=== PATIENT | female | born 1995 | race Two or more races ===

== ENCOUNTER 2024-01-05 10:36 | Outpatient (CLI) | payer OTHER | END 2024-01-05 10:41 | disposition home or self-care (01) | LOC: PRENATAL 10:36 | PROVIDERS: ATTEND Obstetrics & Gynecology Maternal & Fetal Medicine | DX: O36.80X0 Pregnancy with inconclusive fetal viability, not applicable or unspecified (principal); Z36.82 Encounter for antenatal screening for nuchal translucency; Z14.8 Genetic carrier of other disease ==

== ENCOUNTER 2024-02-10 12:40 | Outpatient (CLI) | payer OTHER | END 2024-02-10 12:41 | disposition home or self-care (01) | LOC: PRENATAL 12:40 | PROVIDERS: ATTEND Obstetrics & Gynecology Maternal & Fetal Medicine | DX: O44.00 Complete placenta previa NOS or without hemorrhage, unspecified trimester (principal); Z3A.19 19 weeks gestation of pregnancy ==

== ENCOUNTER 2024-02-29 21:23 | Inpatient (IN) | payer OTHER ==
[~2024-02-29] VITALS: Ht 160 cm; Wt 55.8 kg
[2024-02-29 20:49] VITALS: BP 111/72
[2024-02-29] MEDS ORDERED: RINGERS SOLUTION,LACTATED 1,000 ML IV SCH (21:45)
[2024-02-29] MEDS ORDERED: ACETAMINOPHEN 500 MG GEL..CAP PO PRN (21:45)
[2024-02-29 21:50] LABS: PH,URINE 6.5 (5.0-8.0); URINE APPEARANCE Cloudy; URINE BILIRRUBIN Negative (NEGATIVE); URINE BLOOD Negative; URINE COLOR Yellow; URINE GLUCOSE Negative (NEGATIVE); URINE KETONE Negative (NEGATIVE); URINE LEUKOCYTE Negative; URINE NITRATE Negative; URINE PROTEIN Negative (NEGATIVE); URINE UROBILINOGEN 0.2 E.U./dl
[2024-02-29 21:52] LABS: HEMATOCRIT 32.1 % (36.0-45.00); HEMOGLOBIN 11.1 g/dL (12.0-15.00); MEAN CELL VOLUME 89.2 fL (80.00-100.00); MEAN CORPUSCULAR HEMOGLOBIN 30.8 pg (27.00-32.0); MEAN CORPUSCULAR HGB CONC 34.5 g/dl (32.0-36.0); PLATELET COUNT 275 K/uL (150-450); RED BLOOD COUNT 3.59 M/uL (4.00-6.00); RED CELL DISTRIBUTION WIDTH 13.1 % (11.5-14.5)
[2024-02-29 21:53] LABS: URINE BACTERIA 1287.3 uL (0.0-1933); URINE EPITHELIAL CELLS 11.2 uL (0.0-38.8); URINE RBC 9.8 uL (0.0-20.8); URINE WBC 13.6 uL (0.0-23.2)
[2024-02-29 23:15] VITALS: BP 98/62
[2024-03-01 03:00] VITALS: BP 102/62
[2024-03-01 06:02] VITALS: BP 94/60; O2SAT 98
[2024-03-01 07:55] VITALS: BP 94/60
[2024-03-01] MEDS ORDERED: ACETAMINOPHEN 500 MG GEL..CAP PO PRN (08:15)
[2024-03-01] MEDS ORDERED: CEFTRIAXONE SODIUM 1,000 MG VIAL IV SCH (09:00)
[2024-03-01 11:32] VITALS: BP 104/66
[2024-03-01 15:28] VITALS: BP 99/63
[2024-03-02 00:32] VITALS: BP 101/65
[2024-03-02 05:58] VITALS: BP 92/57
[2024-03-02 08:06] VITALS: BP 100/64
[2024-03-02 15:55] VITALS: BP 95/58
[2024-03-03 01:11] VITALS: BP 95/60
[2024-03-03 07:50] VITALS: BP 95/60
== END 2024-03-03 11:53 | disposition home or self-care (01) | DRG 833 ==
LOC: OBS/DEL 21:23 → OB/GYN 03-01 08:05 → LDR 03-01 08:05 → OB/GYN 03-01 08:47
PROVIDERS: ADMIT Obstetrics & Gynecology; ATTEND Obstetrics & Gynecology
PROC: 4A1HXCZ Monitoring of Products of Conception, Cardiac Rate, External Approach (ICD-10-PCS; principal; 2024-03-01)
DX: O23.02 Infections of kidney in pregnancy, second trimester (principal); Z3A.22 22 weeks gestation of pregnancy; Z20.822 Contact with and (suspected) exposure to COVID-19

== ENCOUNTER → 2024-02-29 | Emergency (ER) | payer OTHER | END | disposition left against medical advice (07) | LOC: ER 20:08 | DX: Z53.21 Procedure and treatment not carried out due to patient leaving prior to being seen by health care provider (principal) ==

== ENCOUNTER 2024-05-10 13:26 | Outpatient (CLI) | payer OTHER | END 2024-05-10 13:30 | disposition home or self-care (01) | LOC: PRENATAL 13:26 | PROVIDERS: ATTEND Obstetrics & Gynecology Maternal & Fetal Medicine | DX: O26.849 Uterine size-date discrepancy, unspecified trimester (principal); O36.8199 Decreased fetal movements, unspecified trimester, other fetus; Z3A.31 31 weeks gestation of pregnancy ==

== ENCOUNTER 2024-06-20 14:30 | Inpatient (IN) | payer OTHER ==
[~2024-06-20] VITALS: Ht 160 cm; Wt 63.5 kg
[2024-06-20 16:33] LABS: HEMATOCRIT 35.3 % (36.0-45.00); HEMOGLOBIN 11.8 g/dL (12.0-15.00); MEAN CELL VOLUME 86.5 fL (80.00-100.00); MEAN CORPUSCULAR HGB CONC 33.5 g/dl (32.0-36.0); PLATELET COUNT 309 K/uL (150-450); RED BLOOD COUNT 4.09 M/uL (4.00-6.00); RED CELL DISTRIBUTION WIDTH 12.8 % (11.5-14.5); URINE BACTERIA 64.8 uL (0.0-1933); URINE EPITHELIAL CELLS 2.5 uL (0.0-38.8); URINE RBC 3.2 uL (0.0-20.8); URINE WBC 4.1 uL (0.0-23.2)
[2024-06-20 16:35] LABS: PH,URINE 5.5 (5.0-8.0); URINE APPEARANCE Clear; URINE BILIRRUBIN Negative (NEGATIVE); URINE BLOOD Negative; URINE CAST 0.88 uL (0.0-1.40); URINE COLOR Yellow; URINE GLUCOSE Negative (NEGATIVE); URINE KETONE Trace (NEGATIVE); URINE LEUKOCYTE Negative; URINE NITRATE Negative; URINE PROTEIN Negative (NEGATIVE); URINE UROBILINOGEN 0.2 E.U./dl
[2024-06-20 16:54] LABS: INR 0.94; PARTIAL THROMBOPLASTIN TIME 25.5 SECONDS (22.0-34.0); PROTHROMBIN TIME 10.3 SECONDS (9.0-11.5)
[2024-06-20 16:59] LABS: BILIRUBIN TOTAL 0.29 mg/dL (0.3-1.2); CALCIUM 9.7 mg/dL (8.5-10.1); CREATININE SERUM 0.61 mg/dL (0.55-1.02); GFR 115.16; POTASSIUM 4.19 mEq/L (3.5-5.1)
[2024-06-29 04:19] VITALS: BP 129/72
[2024-06-29] MEDS ORDERED: PRENATAL CAPLE1 EAC1 PO (04:53)
[2024-06-29] MEDS ORDERED: RINGERS SOLUTION,LACTATED 1,000 ML IV SCH (05:00)
[2024-06-29 07:20] VITALS: BP 120/78
[2024-06-29] MEDS ORDERED: OXYTOCIN 500 ML IV SCH (09:45)
[2024-06-29] MEDS ORDERED: OXYTOCIN 20 UNITS/1000ML RL PIGGYBAG IV ONE (11:15)
[2024-06-29] MEDS ORDERED: ERYTHROMYCIN BASE OPHT 1GM EACH TUBE OP ONE (11:15)
[2024-06-29] MEDS ORDERED: CHLORHEXIDINE GLUCONATE 120 ML BOTTLE TOP ONE (11:16)
[2024-06-29] MEDS ORDERED: LIDOCAINE HCL 1% 10ML VIAL ONE (11:16)
[2024-06-29 11:55] VITALS: BP 121/70
[2024-06-29] MEDS ORDERED: OXYTOCIN 1,000 ML IV SCH (15:45)
[2024-06-29] MEDS ORDERED: ACETAMINOPHEN 500 MG GEL..CAP PO PRN (15:45)
[2024-06-29 16:03] VITALS: BP 112/66
[2024-06-29 16:05] VITALS: BP 110/59
[2024-06-29 17:47] VITALS: BP 110/71
[2024-06-29 19:34] LABS: HEMATOCRIT 33.3 % (36.0-45.00); MEAN CORPUSCULAR HEMOGLOBIN 28.4 pg (27.00-32.0); PLATELET COUNT 299 K/uL (150-450); RED BLOOD COUNT 3.87 M/uL (4.00-6.00); RED CELL DISTRIBUTION WIDTH 13.4 % (11.5-14.5)
[2024-06-30] VITALS: BP 102/68
[2024-06-30 08:10] VITALS: BP 119/74
[2024-06-30] MEDS ORDERED: PNV,CALCIUM 72/IRON/FOLIC ACID 1 TAB TABLET PO SCH (09:00)
[2024-06-30 16:00] VITALS: BP 111/71
[2024-06-30 20:00] VITALS: BP 107/66
[2024-07-01] VITALS: BP 100/65
[2024-07-01 04:00] VITALS: BP 100/69
[2024-07-01 08:22] VITALS: BP 113/77
== END 2024-07-01 13:41 | disposition home or self-care (01) | DRG 807 ==
LOC: OB/GYN 06-29 04:47 → LDR 06-29 04:47 → OB/GYN 06-29 14:25
PROVIDERS: ADMIT Student in an Organized Health Care Education/Training Program; ATTEND Student in an Organized Health Care Education/Training Program
PROC: 10E0XZZ Delivery of Products of Conception, External Approach (ICD-10-PCS; principal; 2024-06-29)
PROC: 0KQM0ZZ Repair Perineum Muscle, Open Approach (ICD-10-PCS; 2024-06-29)
PROC: 4A1HXCZ Monitoring of Products of Conception, Cardiac Rate, External Approach (ICD-10-PCS; 2024-06-29)
DX: O70.1 Second degree perineal laceration during delivery (principal); Z37.0 Single live birth; Z3A.39 39 weeks gestation of pregnancy